=== PATIENT | female | born 1985 | race Caucasian/White ===

== ENCOUNTER 2017-10-05 12:00 | Emergency (ER) | payer OTHER ==
--- NOTE | 2017-10-05 12:42 | ERPHSYRPT ---
- History of Present Illness Source: patient Exam Limitations: no limitations Patient Subjective Stated Complaint: pt here for right flank pain off and on, no fever, no burning or pain with urination, nausea Triage Nursing Assessment: pt alert, walked in, resp easy, skin w/d/p Hx Influenza Vaccination/Date Given: No Hx Pneumococcal Vaccination/Date Given: No Immunizations Up to Date: Yes <DOMI PARKER - Last Filed: 10/05/17 12:39> <STEVIE DE LEÓN - Last Filed: 10/05/17 16:24> - History of Present Illness Time Seen by Provider: 10/05/17 12:34 Physician History: 32 year old female reports to the emergency department for intermittent right flank pain for the last 3 days. she has felt feverish and had some chills intermittently. no dysuria, no gross hematuria. she reports frequent bleeding since delivering a child 5 months ago so LMP is uncertain. she is not on any medications, is not taking any contraception. she does have a remote history of renal stones. (DOMI PARKER) Allergies/Adverse Reactions: No Known Drug Allergies Allergy (Unverified 10/05/17 12:31) - Review of Systems Constitutional: Fever, Chills Respiratory: No Cough, No Dyspnea Cardiac: No Chest Pain, No Edema, No Syncope Abdominal/Gastrointestinal: Nausea, Other (right flank pain), No Abdominal Pain , No Vomiting, No Diarrhea, No Constipation, No Hematochezia, No Melena Genitourinary Symptoms: Flank Pain, No Dysuria, No Frequency, No Hematuria Musculoskeletal: No Back Pain, No Neck Pain All Other Systems: Reviewed and Negative <DOMI PARKER - Last Filed: 10/05/17 12:39> - Past Medical History Pertinent Past Medical History: No - Past Surgical History Past Surgical History: Yes Female Surgical History: Section Other Surgical History: oviaran csyt removed - Social History Smoking Status: Current every day smoker Exposure to second hand smoke: Yes Drug Use: none Patient Lives Alone: No - Female History Hx Last Menstrual Period: this week Hx Now: No <DOMI PARKER - Last Filed: 10/05/17 12:39> - Physical Exam General Appearance: no apparent distress, alert Eye Exam: PERRL/EOMI, eyes nml inspection Respiratory Exam: normal breath sounds, lungs clear, No respiratory distress Cardiovascular Exam: regular rate/rhythm, normal heart sounds, normal peripheral pulses Gastrointestinal/Abdomen Exam: soft, normal bowel sounds, No tenderness, No guarding, No rebound Back Exam: CVA tenderness (right) Neurologic Exam: alert, oriented x 3, cooperative, normal mood/affect, nml cerebellar function, nml station & gait, sensation nml, No motor deficits Skin Exam: normal color, warm, dry, No rash SpO2 Interpretation: normal SpO2: 99 Oxygen Delivery: Room Air <DOMI PARKER - Last Filed: 10/05/17 12:39> - Nursing Vital Signs Nursing Vital Signs: Initial Vital Signs Temperature 98.4 F 10/05/17 12:27 Pulse Rate 105 H 10/05/17 12:27 Respiratory Rate 16 10/05/17 12:27 Blood Pressure 134/84 10/05/17 12:27 O2 Sat by Pulse Oximetry 99 10/05/17 12:27 Pain Scale Pain Intensity 7 - Radiology Ultrasound Exam renal Ultrasound: hydronephrosis (moderate to severe right kidney, 3 stones in right kidney, no ureteral jet in right seen, left is present, 2 stones left kidney) <STEVIE DE LEÓN - Last Filed: 10/05/17 16:24> Ordered Tests: Active Orders 24 hr Category Date Time Status IV Insertion STAT Care 10/05/17 12:37 Active NPO (ED) STAT Care 10/05/17 14:44 Active ABDOMEN AND PELVIS W/0 CONTRAS [CT] Stat Exams 10/05/17 14:42 Completed KIDNEY [US] Stat Exams 10/05/17 13:22 Completed AMYLASE Stat Lab 10/05/17 13:38 Completed CBC W DIFF Stat Lab 10/05/17 13:38 Completed CMP Stat Lab 10/05/17 13:38 Completed CULTURE,URINE Stat Lab 10/05/17 12:38 Received HCG QUALITATIVE,SERUM Stat Lab 10/05/17 13:38 Completed LIPASE Stat Lab 10/05/17 13:38 Completed UA W/ MICROSCOPIC Stat Lab 10/05/17 12:38 Completed Medication Summary Generic Name Dose Route Start Last Admin Trade Name Freq PRN Reason Stop Dose Admin Dextrose/Sodium Chloride 1,000 mls @ 100 mls/hr 10/05/17 14:45 10/05/17 15:03 Dextrose 5% -0.45 Nacl 1000 Ml IV 11/04/17 14:44 100 mls/hr .Q10H DEV Administration Discontinued Medications Generic Name Dose Route Start Last Admin Trade Name Ashley PRN Reason Stop Dose Admin Hydromorphone HCl 1 mg 10/05/17 14:43 10/05/17 15:03 Hydromorphone 1 Mg/Ml Ampule IV 10/05/17 14:44 1 mg STAT ONE Administration Hydromorphone HCl Confirm 10/05/17 14:54 Hydromorphone 1 Mg/Ml Ampule Administered 10/05/17 14:55 Dose 1 mg .ROUTE .STK-MED ONE Ceftriaxone Sodium/Dextrose 1 g in 50 mls @ 100 mls/hr 10/05/17 14:43 15:03 Rocephin 1 Gm-D5w 50 Ml Bag IV 10/05/17 15:12 100 mls/hr STAT STA Administration Ceftriaxone Sodium/Dextrose Confirm 10/05/17 14:55 Rocephin 1 Gm-D5w 50 Ml Bag Administered 10/05/17 14:56 Dose 1 g in 50 mls @ ud IV .STK-MED ONE Ondansetron HCl 4 mg 10/05/17 14:43 10/05/17 15:03 Zofran 4 Mg/2 Ml Vial IV 10/05/17 14:44 4 mg STAT ONE Administration Ondansetron HCl Confirm 10/05/17 14:54 Zofran 4 Mg/2 Ml Vial Administered 10/05/17 14:55 Dose 4 mg .ROUTE .STK-MED ONE Lab/Rad Data: Laboratory Result Diagrams 10/05/17 13:38 10/05/17 13:38 Laboratory Results 10/05/17 10/05/17 10/05/17 Range/Units 13:38 13:38 13:38 WBC 9.7 (4.0-10.5) K/mm3 RBC 4.27 (4.1-5.4) M/mm3 Hgb 10.8 L (12.0-16.0) gm/dl Hct 35.6 (35-47) % MCV 83.4 (78-100) fl MCH 25.2 L (26-32) pg MCHC 30.3 L (32-36) g/dl RDW 16.1 H (11.5-14.0) % Plt Count 189 (150-450) K/mm3 MPV 12.4 H (6-9.5) fl Gran % 76.4 H (36.0-66.0) % Lymphocytes % 11.5 L (24.0-44.0) % Monocytes % 11.1 (0.0-12.0) % Eosinophils % 0.9 (0.00-5.0) % Basophils % 0.1 (0.0-0.4) % Basophils # 0.01 (0-0.4) Sodium 138 (136-145) mEq/L Potassium 3.8 (3.5-5.1) mEq/L Chloride 104 (98-107) mEq/L Carbon Dioxide 29.2 (21-32) mEq/L Anion Gap 8.7 (5-15) MEQ/L BUN 11 (9-20) mg/dL Creatinine 0.82 (0.55-1.30) mg/dl Estimated GFR > 60 ML/MIN Glucose 61 L (70-110) MG/DL Calcium 8.9 (8.5-10.1) mg/dL Total Bilirubin 0.30 (0.2-1.0) mg/dL AST 19 (15-37) U/L ALT 26 (12-78) U/L Alkaline Phosphatase 73 (46-116) U/L Serum Total Protein 7.0 (6.4-8.2) gm/dL Albumin 3.6 (3.4-5.0) g/dL Amylase 43 (25-115) U/L Lipase 79 (73-393) U/L Serum , Qual NEGATIVE (Negative) Ur Collection Type Urine Color (YELLOW) Urine Appearance (CLEAR) Urine pH (5-6) Ur Specific [place] (1.005-1.025) Urine Protein (Negative) Urine Ketones (NEGATIVE) Urine Blood (0-5) Thony/ul Urine Nitrite (NEGATIVE) Urine Bilirubin (NEGATIVE) Urine Urobilinogen (0-1) mg/dL Ur Leukocyte Esterase (NEGATIVE) Urine Microscopic RBC (0-2) /HPF Urine Microscopic WBC (0-5) /HPF Ur Epithelial Cells (FEW) /HPF Urine Bacteria (NEGATIVE) /HPF Urine Mucus (NEGATIVE) /HPF Urine Culture Reflexed (NO) Urine Glucose (NEGATIVE) mg/dL Specimen Received 10/05/17 Range/Units 12:38 WBC (4.0-10.5) K/mm3 RBC (4.1-5.4) M/mm3 Hgb (12.0-16.0) gm/dl Hct (35-47) % MCV (78-100) fl MCH (26-32) pg MCHC (32-36) g/dl RDW (11.5-14.0) % Plt Count (150-450) K/mm3 MPV (6-9.5) fl Gran % (36.0-66.0) % Lymphocytes % (24.0-44.0) % Monocytes % (0.0-12.0) % Eosinophils % (0.00-5.0) % Basophils % (0.0-0.4) % Basophils # (0-0.4) Sodium (136-145) mEq/L Potassium (3.5-5.1) mEq/L Chloride (98-107) mEq/L Carbon Dioxide (21-32) mEq/L Anion Gap (5-15) MEQ/L BUN (9-20) mg/dL Creatinine (0.55-1.30) mg/dl Estimated GFR ML/MIN Glucose (70-110) MG/DL Calcium (8.5-10.1) mg/dL Total Bilirubin (0.2-1.0) mg/dL AST (15-37) U/L ALT (12-78) U/L Alkaline Phosphatase (46-116) U/L Serum Total Protein (6.4-8.2) gm/dL Albumin (3.4-5.0) g/dL Amylase (25-115) U/L Lipase (73-393) U/L Serum , Qual (Negative) Ur Collection Type CLEAN CATCH Urine Color LT.YELLOW (YELLOW) Urine Appearance CLEAR (CLEAR) Urine pH 7.0 (5-6) Ur Specific [place] 1.010 (1.005-1.025) Urine Protein NEGATIVE (Negative) Urine Ketones NEGATIVE (NEGATIVE) Urine Blood TRACE HEMOLYZED (0-5) Thony/ul Urine Nitrite NEGATIVE (NEGATIVE) Urine Bilirubin NEGATIVE (NEGATIVE) Urine Urobilinogen NORMAL (0-1) mg/dL Ur Leukocyte Esterase TRACE (NEGATIVE) Urine Microscopic RBC 0-2 (0-2) /HPF Urine Microscopic WBC 15-25 (0-5) /HPF Ur Epithelial Cells MODERATE (FEW) /HPF Urine Bacteria MODERATE (NEGATIVE) /HPF Urine Mucus SLIGHT (NEGATIVE) /HPF Urine Culture Reflexed YES (NO) Urine Glucose NEGATIVE (NEGATIVE) mg/dL Specimen Received 10/05/17 1340 <DOMI PARKER - Last Filed: 10/05/17 12:39> - Progress Counseled pt/family regarding: lab results, diagnosis, need for follow-up, rad results <STEVIE DE LEÓN - Last Filed: 10/05/17 16:24> - Progress Progress Note: 10/05/17 13:23 Pt was initially seen per Dr. Parker. She is a 32 y/o patient of Dr Workman with long hx of prior kidney stones (none recent). She had a few day hx of intermittent right flank pain. Normal urination. Some nausea. No abd pain. No cough or diff breathing. 5 month post bottle feeding with irrregular menses. Declines medications at present. PE: awake, alert, neck supple, lungs clear, cor reg, abd soft and NT/ND. Skin without rash. Extr nontender, no edema. Will get sonogram renal to evaluate for hydronephrosis. 10/05/17 14:44 She has severe hydro on right. Will get CT to assess stone. She will need urology. Prefers [facility]. 10/05/17 16:16 Urine culture sent. Rocephin given. She has large distal stone. She ate this afternoon. She has high grade obstructions. Called Dr Matias who will see in office in AM. (STEVIE DE LEÓN) <DOMI PARKER - Last Filed: 10/05/17 12:39> - Departure Time of Disposition: 16:17 Departure Disposition: Home Critical Care Time: No <STEVIE DE LEÓN - Last Filed: 10/05/17 16:24> - Departure Clinical Impression: Right distal ureteral calculus, Hydronephrosis, right Condition: Fair Referrals: KAM MATIAS [COURTESY STAFF] - Instructions: Kidney Stones in Adults Additional Instructions: No driving today or while taking norco. Rx norco for pain. Rx zofran for nausea. See Dr Matias tomorrow at 8:30 AM. Nothing to eat or drink after 12 midnight tonite. Prescriptions: Ondansetron ODT 4 MG [Zofran Odt 4 mg] 1 tab PO Q6H PRN PRN #10 tab.rapdis PRN Reason: Nausea/Vomiting Hydrocodone Bit/Acetaminophen [[place] 5-325 Tablet] 1 each PO Q4-6HPRN PRN #20 tablet MDD 4 PRN Reason: Pain
[2017-10-05 13:43] LABS: Appearance CLEAR (CLEAR)
[2017-10-05 13:45] LABS: Bilirubin NEGATIVE (NEGATIVE); Blood TRACE HEMOLYZED Ery/ul (0-5); Glucose NEGATIVE (NEGATIVE); Ketones NEGATIVE (NEGATIVE); Leukocyte Esterase TRACE (NEGATIVE); Nitrite NEGATIVE (NEGATIVE); Protein,Urine Dip NEGATIVE (Negative); Urobilinogen NORMAL mg/dL (0-1)
[2017-10-05 13:54] LABS: Bacteria MODERATE /HPF (NEGATIVE); Epithelial Cells MODERATE /HPF (FEW); Mucus SLIGHT /HPF (NEGATIVE); WBC 15-25 /HPF (0-5)
[2017-10-05 14:12] LABS: ALBUMIN 3.6 g/dL (3.4-5.0); ALKALINE PHOSPHATASE 73 U/L (46-116); AMYLASE 43 U/L (25-115); ANION GAP 8.7 MEQ/L (5-15); BLOOD UREA NITROGEN 11 mg/dL (9-20); CHLORIDE 104 mEq/L (98-107); Calcium 8.9 mg/dL (8.5-10.1); Carbon Dioxide 29.2 mEq/L (21-32); Creatinine 1 0.82 mg/dl (0.55-1.30); EST GLOMERULAR FILTRATION RATE > 60 ML/MIN; Glucose 61 MG/DL (70-110); LIPASE 79 U/L (73-393); Potassium 3.8 mEq/L (3.5-5.1); SGOT/AST 19 U/L (15-37); SGPT/ALT 26 U/L (12-78); SODIUM 138 mEq/L (136-145)
[2017-10-05] MEDS ORDERED: ROCEPHIN 1 Gm-D5w 50 ml Bag** 1 G/50 ML IVPB IV STA (14:43)
[2017-10-05] MEDS ORDERED: Hydromorphone 1 mg/ml Ampule IV ONE (14:43)
[2017-10-05] MEDS ORDERED: Zofran 4 MG/2 ML VIAL IV ONE (14:43)
--- NOTE | 2017-10-05 14:44 | XRAY ---
Indication: Right flank pain. History of stones. Two-dimensional renal sonogram performed. Comparison: None Right kidney measures 11.9 x 6.0 x 6.4 cm and the left measures 10.4 x 5.0 x 4.8 cm. Normal color perfusion bilaterally. Right kidney demonstrates at least 3 calculi, largest 10.7 mm. There is also moderate hydronephrosis but no perinephric fluid. Left kidney demonstrates at least 2 calculi, largest 6.8 mm without hydronephrosis or evidence for obstructive uropathy. Cortical medullary differentiation preserved without cortical thinning. Images of the urinary bladder unremarkable. Normal left ureteral jet. Right ureteral jet not seen within the allotted exam time. Impression: Bilateral renal calculi. Right kidney is hydronephrotic without distal ureteral jet concerning for distal ureteral obstruction. CT renal stone study may yield further information.
[2017-10-05] MEDS ORDERED: Dextrose 5% -0.45 NaCl 1000 ML 1,000 ML IV SCH (14:45)
[2017-10-05] MEDS ORDERED: Zofran 4 MG/2 ML VIAL ONE (14:54)
[2017-10-05] MEDS ORDERED: Dextrose 5% -0.45 NaCl 1000 ML 1,000 ML IV ONE (14:54)
[2017-10-05] MEDS ORDERED: Hydromorphone 1 mg/ml Ampule ONE (14:54)
[2017-10-05] MEDS ORDERED: ROCEPHIN 1 Gm-D5w 50 ml Bag** 1 G/50 ML IVPB IV ONE (14:55)
[2017-10-05 15:16] VITALS: BP 133/78; PULSE 90; O2SAT 9
[2017-10-05 15:21] LABS: BASOPHIL % 0.1 % (0.0-0.4); Basophil (Absolute #) 0.01 (0-0.4); Eosinophil % 0.9 % (0.00-5.0); Eosinophil (Absolute #) 0.09 (0-0.5); Granulocyte Absolute (ANC) 7.44 (1.4-6.9); Granulocytes % 76.4 % (36.0-66.0); Hematocrit 35.6 % (35-47); Hemoglobin 10.8 gm/dl (12.0-16.0); Lymphocyte (Absolute #) 1.12 (1.0-4.6); Lymphocytes % 11.5 % (24.0-44.0); Mean Cell Volume 83.4 fl (78-100); Mean Corpuscular Hgb Concent. 30.3 g/dl (32-36); Mean Platelet Volume 12.4 fl (6-9.5); Monocyte (Absolute #) 1.08 (0.0-1.3); Monocytes % 11.1 % (0.0-12.0); Platelet Count 189 K/mm3 (150-450); Red Blood Count 4.27 M/mm3 (4.1-5.4); Red Cell Distribution Width 16.1 % (11.5-14.0); White Blood Count 9.7 K/mm3 (4.0-10.5)
[2017-10-05 15:22] LABS: Mean Corpuscular Hemoglobin 25.2 pg (26-32)
--- NOTE | 2017-10-05 15:59 | XRAY ---
Indication: Right flank pain 3 days. Hydronephrosis on same day renal ultrasound. Multiple contiguous axial images obtained through the abdomen and pelvis without contrast using renal stone protocol. Comparison: None Lung bases demonstrates minimal bilateral dependent atelectasis. Heart is not enlarged. Distal right ureter just proximal to the UVJ demonstrates a large calculus measuring 10 mm in diameter and 17 mm in length. The proximal right ureter is abnormally distended up to 14 mm and there is moderate hydronephrosis. No perinephric fluid. Additional bilateral renal calculi, largest on the right measuring 7 mm. 3.6 cm left ovary cyst. Tiny cul-de-sac fluid presumed from ruptured/leaking cyst. Uterus is prominent with thickened endometrial cavity. Noncontrasted stomach and bowel loops appear nonobstructed. There is mild diffuse scattered colonic fecal debris throughout. There is appendicolith without acute appendicitis. Remaining liver, gallbladder, pancreas, spleen, adrenal glands, bladder, and aorta appear unremarkable for noncontrast exam. Osseous structures intact. Bilateral L5 spondylolysis without spondylolisthesis. Impression: 1. Large distal right ureteral calculus producing high-grade obstruction. Additional bilateral renal calculi. 2. 3.6 cm left ovary cyst with tiny cul-de-sac fluid. Prominent uterus with thickened endometrial stripe that should be correlated with patient's menstrual cycle. Pelvic sonogram may yield further information if clinically warranted. 3. Fecal stasis without obstruction. 4. Incidental appendicolith. 5. Bilateral L5 spondylolysis without spondylolisthesis. CT DI 9.72
== END 2017-10-05 16:47 | disposition home or self-care (01) ==
LOC: ED 12:00
DX: N13.2 Hydronephrosis with renal and ureteral calculous obstruction (principal)
CPT/HCPCS: 36000; 36415; 74176; 76770; 80053; 81000; 82150; 83690; 84703; 85025; 87086; 96374; 96375; 99283; J0696; J1170; J2405